=== PATIENT | female | born 1965 | race African-American/Black ===

== ENCOUNTER 2018-09-22 18:45 | Emergency (ER) | payer MEDICAID ==
[~2018-09-22] VITALS: Ht 165.1 cm; Wt 100.4 kg
[2018-09-22 18:50] VITALS: BP 135/83
[2018-09-22] MEDS ORDERED: HYDROcodone/APAP 5/325 TABLET ONE (20:58)
[2018-09-22] MEDS ORDERED: HYDROcodone/APAP 5/325 TABLET PO ONE (21:00)
== END 2018-09-22 21:06 | disposition home or self-care (01) ==
LOC: ED 21:00
DX: M25.511 Pain in right shoulder (principal)
CPT/HCPCS: 99283

== ENCOUNTER 2020-09-15 02:12 | Emergency (ER) | payer MEDICAID ==
[~2020-09-15] VITALS: Ht 162.6 cm; Wt 105.1 kg
[2020-09-15 02:15] VITALS: BP 160/83
[2020-09-15] MEDS ORDERED: KETOROLAC 30 MG/1 ML IM ONE (02:30)
[2020-09-15] MEDS ORDERED: KETOROLAC 30 MG/1 ML ONE (02:40)
--- NOTE | 2020-09-15 02:43 | NUR ---
PT MEDICATED PER MAR
--- NOTE | 2020-09-15 04:29 | NUR ---
Patient/Caregiver given discharge instructions and they have confirmed that they understand the instructions. Patient ambulatory with steady gait.
== END 2020-09-15 04:30 | disposition home or self-care (01) ==
LOC: ED 04:10
DX: M25.512 Pain in left shoulder (principal); F17.200 Nicotine dependence, unspecified, uncomplicated
CPT/HCPCS: 73030; 96372; 99283; J1885